=== PATIENT | male | born 1990 | race Caucasian/White ===

== ENCOUNTER 2017-08-20 14:10 | Emergency (ER) | payer MEDICAID ==
[~2017-08-20] VITALS: Ht 175.3 cm; Wt 74.0 kg
[2017-08-20 14:18] VITALS: BP 128/91
== END 2017-08-20 14:52 | disposition home or self-care (01) ==
LOC: ED 14:45
DX: M25.522 Pain in left elbow (principal); M25.532 Pain in left wrist; M25.512 Pain in left shoulder; M79.642 Pain in left hand; X50.0XXA Overexertion from strenuous movement or load, initial encounter; Y93.89 Activity, other specified; Y92.89 Other specified places as the place of occurrence of the external cause; Y99.8 Other external cause status
CPT/HCPCS: 99283